=== PATIENT | female | born 1950 | race African-American/Black ===

== ENCOUNTER 2025-08-25 22:00 | Inpatient (IN) | payer MEDICARE, OTHER ==
[~2025-08-25] VITALS: Ht 152.4 cm; Wt 40.0 kg
[2025-08-25 22:00] VITALS: PULSE 109; PULSE 74; RESP 26; RESP 27; O2SAT 89; O2SAT 99
[2025-08-25] MEDS: FUROSEMIDE 20 MG/2 ML VIAL IVP ONE ×2 (22:15→22:44)
[2025-08-25] MEDS: NITROGLYCERIN 2% (1 GM=INCH) OINTMENT PACKET TP ONE (22:15)
[2025-08-25 22:54] LABS: CALCIUM, TOTAL 8.5 mg/dL (8.8-10.5); CREATININE 1.07 mg/dL (0.60-1.30); GLOMERULAR FILTR. RATE CALC > 60 mL/min (>60); GLUCOSE,RANDOM 282 mg/dL (70-110); SODIUM SERUM 140 mmol/L (136-145); UREA NITROGEN, BLOOD 13 mg/dL (7-18)
[2025-08-25 22:55] LABS: PLATELET COUNT (AUTO) 227 K/uL (150-450); RED BLOOD CELL COUNT(AUTO) 4.90 MIL/uL (4.00-5.20); RED CELL DISTRIBUTION WIDTH 15.2 % (11.5-14.5); WHITE BLOOD COUNT (AUTO) 8.6 K/uL (4.5-11.0)
[2025-08-25 23:00] LABS: CREATINE KINASE, TOTAL ONLY 180 U/L (26-192)
[2025-08-25] MEDS ORDERED: ONDANSETRON HCL 4 MG/2 ML VIAL IVP PRN (23:00)
[2025-08-25 23:26] LABS: TROPONIN I-HIGH SENSITIVITY 39 ng/L (<51)
[2025-08-25 23:33] LABS: LACTIC ACID 4.2 mmol/L (0.4-2.0)
[2025-08-26] VITALS (16 sets, daily range): BP systolic 102–122; BP diastolic 47–66; PULSE 46–96; RESP 20–24; TEMP 96.2–98.2; O2SAT 91–100
[2025-08-26] MEDS: HEPARIN SODIUM,PORCINE 5,000 UNITS/ML VIAL SQ SCH
[2025-08-26] MEDS: CefTRIAXone 1 GM/DEXTROSE 50 ML IV SCH (00:01)
[2025-08-26] MEDS: AZITHROMYCIN 500 MG/NS 250 ML IV SCH (00:09)
[2025-08-26 00:30] LABS: FRACTIONATED INSPIRED OXYGEN 100.0 % (21-100.0); SOURCE, BLOOD GAS ARTERIAL
[2025-08-26 00:32] LABS: ABG METHEMOGLOBIN 0.7 % (0.0-1.5)
[2025-08-26 01:03] LABS: ABG BASE EXCESS -5.3 mmol/L (-2.0-3.0); ABG CARBOXYHEMOGLOBIN 1.3 % (0.5-1.5); ABG HCO3 19.6 mmol/L (21.0-28.0); ABG OXYGEN CONTENT 20.3 mL/dL (15.0-23.0); ABG OXYGEN SATURATION 95.7 % (94.0-98.0); ABG OXYHEMOGLOBIN 93.8 % (94.0-98.0); ABG PCO2 54 mmHg (32.0-45.0); ABG PH 7.231 (7.350-7.450); ABG TOTAL HEMOGLOBIN 15.4 G/dL (12.0-16.0); ALLEN TEST, BLOOD GAS Positive; FLOW, BLOOD GAS 0.00 L/min (0.00-15.00); O2 DEVICE,BLOOD GAS BIPAP (ROOM AIR); PO2, ARTERIAL BG 85.9 mmHg (83.0-108.0); SITE, BLOOD GAS LFT BRACHIAL; TEMPERATURE, FAHRENHEIT, BG 98.6 FAHREN (96.0-98.6)
[2025-08-26] MEDS ORDERED: IOHEXOL 350 MG/ML 100 ML VIAL ONE ×2 (01:17→02:51)
[2025-08-26] MEDS: ALBUMIN HUMAN 5%-12.5GM/250ML 250 ML IV ONE (02:00)
[2025-08-26] MEDS: FUROSEMIDE 20 MG/2 ML VIAL IVP ONE (02:16)
[2025-08-26] MEDS: LORazepam 2 MG/ML VIAL IVP ONE ×2 (02:16→02:43)
[2025-08-26] MEDS ORDERED: SODIUM CHLORIDE 0.9% 100 ML ONE (02:51)
[2025-08-26] MEDS ORDERED: ETOMIDATE 2 MG/ML 10 ML VIAL ONE (03:24)
[2025-08-26] MEDS ORDERED: ROCURONIUM BROMIDE 10 MG/ML 5 ML VIAL ONE (03:24)
[2025-08-26] MEDS ORDERED: PHENYLEPHRINE HCL IN 0.9% NACL 400 MCG/10 ML SYRINGE IVP ONE (03:30)
[2025-08-26] MEDS ORDERED: PHENYLEPHRINE 200 MG/D5%-WATER 250 ML IV PRN (03:45)
[2025-08-26] MEDS: PROPOFOL 1000 MG/ISO-OSM 100 ML IV PRN (03:59)
[2025-08-26] MEDS: ALBUTEROL SULFATE 2.5 MG/0.5 ML NEB SOLUTION NEB ONE (04:08)
[2025-08-26] MEDS: IPRATROPIUM BROMIDE 0.5 MG/2.5 ML NEB SOLUTION NEB PRN (04:09)
[2025-08-26] MEDS ORDERED: LABETALOL HCL 5 MG/ML 20 ML VIAL IVP ONE (04:18)
[2025-08-26] MEDS: FentaNYL CIT 1000MCG/0.9% NACL 100 ML IV PRN ×2 (04:24→23:31)
[2025-08-26 04:27] LABS: APPEARANCE,URINE CLEAR (CLEAR); GLUCOSE, URINE (UA) TRACE mg/dL (NEGATIVE); LEUKOCYTE ESTERASE ,URINE NEGATIVE (NEGATIVE); NITRATE,URINE NEGATIVE (NEGATIVE); OCCULT BLOOD,URINE NEGATIVE (NEGATIVE); SPECIFIC GRAVITIY, URINE 1.009 (1.003-1.030)
[2025-08-26] MEDS: LABETALOL HCL 5 MG/ML 20 ML VIAL IVP ONE (05:04)
[2025-08-26 05:20] LABS: PLATELET COUNT (AUTO) 239 K/uL (150-450); RED BLOOD CELL COUNT(AUTO) 4.89 MIL/uL (4.00-5.20); RED CELL DISTRIBUTION WIDTH 14.8 % (11.5-14.5); WHITE BLOOD COUNT (AUTO) 10.6 K/uL (4.5-11.0)
[2025-08-26 05:34] LABS: CALCIUM, TOTAL 8.0 mg/dL (8.8-10.5); CREATININE 0.81 mg/dL (0.60-1.30); GLOMERULAR FILTR. RATE CALC > 60 mL/min (>60); GLUCOSE,RANDOM 193 mg/dL (70-110); SODIUM SERUM 137 mmol/L (136-145); UREA NITROGEN, BLOOD 13 mg/dL (7-18)
[2025-08-26 05:47] LABS: ABG BASE EXCESS 0.5 mmol/L (-2.0-3.0); ABG CARBOXYHEMOGLOBIN 1.1 % (0.5-1.5); ABG HCO3 23.9 mmol/L (21.0-28.0); ABG METHEMOGLOBIN 0.5 % (0.0-1.5); ABG OXYGEN CONTENT 18.6 mL/dL (15.0-23.0); ABG OXYGEN SATURATION 88.8 % (94.0-98.0); ABG OXYHEMOGLOBIN 87.4 % (94.0-98.0); ABG PCO2 55 mmHg (32.0-45.0); ABG PH 7.310 (7.350-7.450); ABG TOTAL HEMOGLOBIN 15.2 G/dL (12.0-16.0); FRACTIONATED INSPIRED OXYGEN 100.0 % (21-100.0); PO2, ARTERIAL BG 59.9 mmHg (83.0-108.0); SOURCE, BLOOD GAS ARTERIAL; TEMPERATURE, FAHRENHEIT, BG 100.0 FAHREN (96.0-98.6)
[2025-08-26 05:48] LABS: ALLEN TEST, BLOOD GAS Positive; FLOW, BLOOD GAS 0.00 L/min (0.00-15.00); O2 DEVICE,BLOOD GAS VENTILATOR (ROOM AIR); PEEP,BG 5 cm H2O; SET RATE, BG 20.0 min.; SITE, BLOOD GAS LFT RADIAL; VT, ABG 360 ml
[2025-08-26] MEDS: DOCUSATE SODIUM 100 MG CAPSULE PO SCH (09:00)
[2025-08-26] MEDS ORDERED: DEXTROSE 50%-WATER 25 GM/50 ML SYRINGE IVP PRN (10:45)
[2025-08-26] MEDS: INSULIN GLARGINE,HUM.REC.ANLOG 100 UNITS/ML SQ SCH (10:45)
[2025-08-26] MEDS: NOREPINEPHRINE 8 MG/0.9 % NACL 250 ML IV PRN (11:07)
[2025-08-26] MEDS: MAGNESIUM SULFATE 2 GM/WATER 50 ML IV ONE (11:35)
[2025-08-26] MEDS ORDERED: SODIUM CHLORIDE 0.9% 500 ML IV ONE ×3 (11:39→16:19)
[2025-08-26] MEDS: ALBUTEROL SULFATE 2.5 MG/0.5 ML NEB SOLUTION NEB PRN (12:02)
[2025-08-26 12:14] LABS: ABG BASE EXCESS -3.2 mmol/L (-2.0-3.0); ABG CARBOXYHEMOGLOBIN 0.7 % (0.5-1.5); ABG HCO3 21.0 mmol/L (21.0-28.0); ABG METHEMOGLOBIN 0.7 % (0.0-1.5); ABG OXYGEN CONTENT 18.4 mL/dL (15.0-23.0); ABG OXYGEN SATURATION 94.4 % (94.0-98.0); ABG OXYHEMOGLOBIN 93.1 % (94.0-98.0); ABG PCO2 59 mmHg (32.0-45.0); ABG TOTAL HEMOGLOBIN 14.0 G/dL (12.0-16.0); FRACTIONATED INSPIRED OXYGEN 80.0 % (21-100.0); PO2, ARTERIAL BG 76.6 mmHg (83.0-108.0); SOURCE, BLOOD GAS ARTERIAL; TEMPERATURE, FAHRENHEIT, BG 97.4 FAHREN (96.0-98.6)
[2025-08-26 12:15] LABS: ABG A-A DIFF O2 433.3 mmHg (10-20.0); ABG PH 7.232 (7.350-7.450); ALLEN TEST, BLOOD GAS Positive; O2 DEVICE,BLOOD GAS VENTILATOR (ROOM AIR); PATIENT RATE, BG 20.0 min.; PEEP,BG 8 cm H2O; SET RATE, BG 20.0 min.; SITE, BLOOD GAS RT RADIAL; VT, ABG 360 ml
[2025-08-26 12:16] LABS: SPONTANEOUS VT, BG 458 ml
[2025-08-26] MEDS ORDERED: DOPamine 400MG/D5W[STANDARD] 250 ML IV PRN (12:45)
[2025-08-26] MEDS: PANTOPRAZOLE SODIUM 40 MG/VIAL IVP SCH (14:28)
[2025-08-26 15:15] LABS: ABG BASE EXCESS -4.7 mmol/L (-2.0-3.0); ABG CARBOXYHEMOGLOBIN 0.3 % (0.5-1.5); ABG HCO3 21.1 mmol/L (21.0-28.0); ABG METHEMOGLOBIN 0.1 % (0.0-1.5); ABG OXYGEN CONTENT 19.1 mL/dL (15.0-23.0); ABG OXYGEN SATURATION 99.5 % (94.0-98.0); ABG OXYHEMOGLOBIN 99.1 % (94.0-98.0); ABG PCO2 36 mmHg (32.0-45.0); ABG PH 7.373 (7.350-7.450); ABG TOTAL HEMOGLOBIN 13.3 G/dL (12.0-16.0); FRACTIONATED INSPIRED OXYGEN 80.0 % (21-100.0); PO2, ARTERIAL BG 237.0 mmHg (83.0-108.0); SOURCE, BLOOD GAS ARTERIAL; TEMPERATURE, FAHRENHEIT, BG 97.8 FAHREN (96.0-98.6)
[2025-08-26 15:17] LABS: ABG A-A DIFF O2 296.4 mmHg (10-20.0); SITE, BLOOD GAS ARTERIAL LINE
[2025-08-26 15:18] LABS: O2 DEVICE,BLOOD GAS VENTILATOR (ROOM AIR); PATIENT RATE, BG 24.0 min.; PEEP,BG 8 cm H2O; SET RATE, BG 24.0 min.; SPONTANEOUS VT, BG 371 ml; VT, ABG 360 ml
[2025-08-26] MEDS: PHENYLEPHRINE 200 MG/D5%-WATER 250 ML IV PRN (15:33)
[2025-08-26 18:05] LABS: GLUCOMETER DEV NAME(LOC) ICU.S7; GLUCOSE,POINT OF CARE 109 MG/DL (70-110)
[2025-08-26 21:36] LABS: GLUCOMETER DEV NAME(LOC) ICU.S7; GLUCOSE,POINT OF CARE 128 MG/DL (70-110)
[2025-08-26] MEDS: INSULIN LISPRO 100 UNITS/ML SQ PRN (21:56)
[2025-08-26] MEDS: ETHYL ALCOHOL 62% ANTISEPTIC NASAL SANITIZER 0.6 ML AMPUL NASAL SCH (21:59)
[2025-08-26] MEDS: CHLORHEXIDINE GLUCONATE 2% TOWELETTE [2'S/6'S] TP SCH (22:00)
[2025-08-26 22:39] LABS: ABG BASE EXCESS -6.0 mmol/L (-2.0-3.0); ABG CARBOXYHEMOGLOBIN 0.4 % (0.5-1.5); ABG HCO3 20.0 mmol/L (21.0-28.0); ABG METHEMOGLOBIN 0.1 % (0.0-1.5); ABG OXYGEN CONTENT 19.9 mL/dL (15.0-23.0); ABG OXYGEN SATURATION 99.2 % (94.0-98.0); ABG OXYHEMOGLOBIN 98.7 % (94.0-98.0); ABG PCO2 39 mmHg (32.0-45.0); ABG PH 7.326 (7.350-7.450); ABG TOTAL HEMOGLOBIN 14.1 G/dL (12.0-16.0); FRACTIONATED INSPIRED OXYGEN 50.0 % (21-100.0); PO2, ARTERIAL BG 168.9 mmHg (83.0-108.0); SOURCE, BLOOD GAS ARTERIAL; TEMPERATURE, FAHRENHEIT, BG 98.4 FAHREN (96.0-98.6)
[2025-08-26 22:40] LABS: ABG A-A DIFF O2 143.7 mmHg (10-20.0); O2 DEVICE,BLOOD GAS VENTILATOR (ROOM AIR); PATIENT RATE, BG 24.0 min.; PEEP,BG 5 cm H2O; SET RATE, BG 24.0 min.; SITE, BLOOD GAS ARTERIAL LINE; SPONTANEOUS VT, BG 358 ml; VT, ABG 360 ml
[2025-08-26 23:09] LABS: COVID AG,FIA SOURCE NASAL SWAB
[2025-08-26 23:11] LABS: INFLUENZA TYPE A NEGATIVE FOR TYPE A (NEGATIVE); INFLUENZA TYPE B NEGATIVE FOR TYPE B (NEGATIVE); SARS-COV2 (COVID) ANTIGEN,FIA Negative (Negative)
[2025-08-26 23:51] LABS: GLUCOMETER DEV NAME(LOC) ICUN.7; GLUCOSE,POINT OF CARE 150 MG/DL (70-110)
[2025-08-27] VITALS (14 sets, daily range): BP systolic 109–135; BP diastolic 40–98; PULSE 53–103; RESP 21–24; TEMP 95.7–98.6; O2SAT 93–100
[2025-08-27 05:30] LABS: PLATELET COUNT (AUTO) 229 K/uL (150-450); RED BLOOD CELL COUNT(AUTO) 4.72 MIL/uL (4.00-5.20); RED CELL DISTRIBUTION WIDTH 15.0 % (11.5-14.5); WHITE BLOOD COUNT (AUTO) 8.5 K/uL (4.5-11.0)
[2025-08-27 05:49] LABS: CALCIUM, TOTAL 8.1 mg/dL (8.8-10.5); CREATININE 0.81 mg/dL (0.60-1.30); GLOMERULAR FILTR. RATE CALC > 60 mL/min (>60); GLUCOSE,RANDOM 155 mg/dL (70-110); SODIUM SERUM 143 mmol/L (136-145); UREA NITROGEN, BLOOD 17 mg/dL (7-18)
[2025-08-27 05:55] LABS: PHOSPHORUS 3.9 mg/dL (2.5-4.9)
[2025-08-27] MEDS: PROPOFOL 1000 MG/ISO-OSM 100 ML IV PRN (06:04)
[2025-08-27 06:30] LABS: GLUCOMETER DEV NAME(LOC) ICUN.7; GLUCOSE,POINT OF CARE 147 MG/DL (70-110)
[2025-08-27 11:10] LABS: GLUCOMETER DEV NAME(LOC) ICU.S7; GLUCOSE,POINT OF CARE 128 MG/DL (70-110)
[2025-08-27] MEDS: DEXMEDETOMIDINE 400 MCG/NS 100 ML IV PRN (15:38)
[2025-08-27 18:01] LABS: GLUCOMETER DEV NAME(LOC) ICUN.7; GLUCOSE,POINT OF CARE 111 MG/DL (70-110)
[2025-08-28] VITALS (16 sets, daily range): BP systolic 116–158; BP diastolic 50–72; PULSE 54–121; RESP 20–28; TEMP 96.7–98.7; O2SAT 93–100
[2025-08-28 00:52] LABS: GLUCOMETER DEV NAME(LOC) ICU.S7; GLUCOSE,POINT OF CARE 144 MG/DL (70-110)
[2025-08-28 05:36] LABS: PLATELET COUNT (AUTO) 212 K/uL (150-450); RED BLOOD CELL COUNT(AUTO) 4.72 MIL/uL (4.00-5.20); RED CELL DISTRIBUTION WIDTH 14.9 % (11.5-14.5); WHITE BLOOD COUNT (AUTO) 13.1 K/uL (4.5-11.0)
[2025-08-28 05:40] LABS: CALCIUM, TOTAL 8.3 mg/dL (8.8-10.5); CREATININE 0.74 mg/dL (0.60-1.30); GLOMERULAR FILTR. RATE CALC > 60 mL/min (>60); GLUCOSE,RANDOM 124 mg/dL (70-110); SODIUM SERUM 147 mmol/L (136-145); UREA NITROGEN, BLOOD 22 mg/dL (7-18)
[2025-08-28 07:41] LABS: GLUCOMETER DEV NAME(LOC) ICUN.7; GLUCOSE,POINT OF CARE 114 MG/DL (70-110)
[2025-08-28] MEDS: MULTIVITAMINS, THERAPEUTIC 15 ML UDCUP GT SCH (08:11)
[2025-08-28] MEDS: THIAMINE 100 MG TABLET GT SCH (08:13)
[2025-08-28 08:56] LABS: GLUCOMETER DEV NAME(LOC) ICUN.7; GLUCOSE,POINT OF CARE 106 MG/DL (70-110)
[2025-08-28 11:30] LABS: ASPARTATE AMINOTRANSFERASE 23 U/L (15-37); CALCIUM, TOTAL 8.3 mg/dL (8.8-10.5); CREATININE 0.73 mg/dL (0.60-1.30); GLOMERULAR FILTR. RATE CALC > 60 mL/min (>60); GLUCOSE,RANDOM 156 mg/dL (70-110); SODIUM SERUM 144 mmol/L (136-145); TOTAL PROTEIN, SERUM 6.8 g/dL (6.4-8.2); UREA NITROGEN, BLOOD 24 mg/dL (7-18)
[2025-08-28 12:30] LABS: GLUCOMETER DEV NAME(LOC) ICUN.7; GLUCOSE,POINT OF CARE 156 MG/DL (70-110)
[2025-08-28] MEDS: METOPROLOL TARTRATE 25 MG TABLET PO SCH (15:22)
[2025-08-28 17:41] LABS: GLUCOMETER DEV NAME(LOC) ICUN.7; GLUCOSE,POINT OF CARE 103 MG/DL (70-110)
[2025-08-28] MEDS: DEXMEDETOMIDINE 400 MCG/NS 100 ML IV PRN (18:54)
[2025-08-28 23:46] LABS: GLUCOMETER DEV NAME(LOC) ICU.S7; GLUCOSE,POINT OF CARE 126 MG/DL (70-110)
[2025-08-29] VITALS (12 sets, daily range): BP systolic 122–142; BP diastolic 51–89; PULSE 58–105; RESP 14–25; TEMP 97.8–99.3; O2SAT 91–98
[2025-08-29 05:45] LABS: GLUCOMETER DEV NAME(LOC) ICU.S7; GLUCOSE,POINT OF CARE 138 MG/DL (70-110)
[2025-08-29 06:07] LABS: PLATELET COUNT (AUTO) 191 K/uL (150-450); RED BLOOD CELL COUNT(AUTO) 4.55 MIL/uL (4.00-5.20); RED CELL DISTRIBUTION WIDTH 14.5 % (11.5-14.5); WHITE BLOOD COUNT (AUTO) 12.5 K/uL (4.5-11.0)
[2025-08-29 06:23] LABS: ASPARTATE AMINOTRANSFERASE 42 U/L (15-37); CALCIUM, TOTAL 8.3 mg/dL (8.8-10.5); CREATININE 0.73 mg/dL (0.60-1.30); GLOMERULAR FILTR. RATE CALC > 60 mL/min (>60); GLUCOSE,RANDOM 136 mg/dL (70-110); SODIUM SERUM 144 mmol/L (136-145); TOTAL PROTEIN, SERUM 6.6 g/dL (6.4-8.2); UREA NITROGEN, BLOOD 32 mg/dL (7-18)
[2025-08-29] MEDS: ACETAMINOPHEN 325 MG TABLET PO PRN (11:27)
[2025-08-29] MEDS: METOPROLOL TARTRATE 25 MG TABLET PO ONE (11:27)
[2025-08-29 13:32] LABS: ABG BASE EXCESS -5.7 mmol/L (-2.0-3.0); ABG CARBOXYHEMOGLOBIN 0.1 % (0.5-1.5); ABG HCO3 20.5 mmol/L (21.0-28.0); ABG METHEMOGLOBIN 0.1 % (0.0-1.5); ABG OXYGEN CONTENT 18.3 mL/dL (15.0-23.0); ABG OXYGEN SATURATION 91.3 % (94.0-98.0); ABG OXYHEMOGLOBIN 91.1 % (94.0-98.0); ABG PCO2 33 mmHg (32.0-45.0); ABG PH 7.381 (7.350-7.450); ABG TOTAL HEMOGLOBIN 14.3 G/dL (12.0-16.0); FRACTIONATED INSPIRED OXYGEN 50.0 % (21-100.0); PO2, ARTERIAL BG 61.4 mmHg (83.0-108.0); SOURCE, BLOOD GAS ARTERIAL; TEMPERATURE, FAHRENHEIT, BG 99.3 FAHREN (96.0-98.6)
[2025-08-29 13:33] LABS: ABG A-A DIFF O2 257.0 mmHg (10-20.0); FLOW, BLOOD GAS 10.00 L/min (0.00-15.00); O2 DEVICE,BLOOD GAS VENTI MASK (ROOM AIR); SITE, BLOOD GAS ARTERIAL LINE
[2025-08-29 14:16] LABS: GLUCOMETER DEV NAME(LOC) ICUN.7; GLUCOSE,POINT OF CARE 171 MG/DL (70-110)
[2025-08-29] MEDS: ENALAPRILAT DIHYDRATE 1.25 MG/ML VIAL IVP ONE (16:24)
[2025-08-29] MEDS: METOPROLOL TARTRATE 25 MG TABLET PO SCH (20:06)
[2025-08-29 22:35] LABS: GLUCOMETER DEV NAME(LOC) ICUN.7; GLUCOSE,POINT OF CARE 77 MG/DL (70-110)
[2025-08-30] VITALS (11 sets, daily range): BP systolic 88–140; BP diastolic 43–98; PULSE 62–95; RESP 11–20; TEMP 97.4–99.2; O2SAT 83–99
[2025-08-30] MEDS ORDERED: SODIUM CHLORIDE 0.9% 250 ML IV ONE (03:15)
[2025-08-30 03:31] LABS: GLUCOMETER DEV NAME(LOC) ICU.S7; GLUCOSE,POINT OF CARE 107 MG/DL (70-110)
[2025-08-30 05:42] LABS: PLATELET COUNT (AUTO) 172 K/uL (150-450); RED BLOOD CELL COUNT(AUTO) 4.27 MIL/uL (4.00-5.20); RED CELL DISTRIBUTION WIDTH 14.7 % (11.5-14.5); WHITE BLOOD COUNT (AUTO) 8.8 K/uL (4.5-11.0)
[2025-08-30 05:43] LABS: CALCIUM, TOTAL 8.2 mg/dL (8.8-10.5); CREATININE 0.63 mg/dL (0.60-1.30); GLOMERULAR FILTR. RATE CALC > 60 mL/min (>60); GLUCOSE,RANDOM 94 mg/dL (70-110); SODIUM SERUM 142 mmol/L (136-145); UREA NITROGEN, BLOOD 26 mg/dL (7-18)
[2025-08-30 10:11] LABS: GLUCOMETER DEV NAME(LOC) ICUN.7; GLUCOSE,POINT OF CARE 100 MG/DL (70-110)
[2025-08-30 10:11] LABS: GLUCOMETER DEV NAME(LOC) ICUN.7; GLUCOSE,POINT OF CARE 81 MG/DL (70-110)
[2025-08-30] MEDS ORDERED: POTASSIUM CHLORIDE 20 MEQ ER TABLET PO PRN (14:00)
[2025-08-30] MEDS ORDERED: POTASSIUM CHL 10 MEQ/WATER 50 ML IV PRN (14:00)
[2025-08-30 14:21] LABS: GLUCOMETER DEV NAME(LOC) ICUN.7; GLUCOSE,POINT OF CARE 76 MG/DL (70-110)
[2025-08-30] MEDS: DEXTROSE 5%-0.45% SODIUM CHL 1,000 ML IV SCH (15:52)
[2025-08-30 18:15] LABS: GLUCOMETER DEV NAME(LOC) 5N.1D; GLUCOSE,POINT OF CARE 83 MG/DL (70-110)
[2025-08-30 22:01] LABS: GLUCOMETER DEV NAME(LOC) 5N.1D; GLUCOSE,POINT OF CARE 93 MG/DL (70-110)
[2025-08-31] VITALS (7 sets, daily range): BP systolic 113–142; BP diastolic 54–76; PULSE 69–80; RESP 16–17; TEMP 97.8–98.6; O2SAT 96–100
[2025-08-31 06:41] LABS: GLUCOMETER DEV NAME(LOC) 5N.1D; GLUCOSE,POINT OF CARE 105 MG/DL (70-110)
[2025-08-31 10:30] LABS: PLATELET COUNT (AUTO) 141 K/uL (150-450); RED BLOOD CELL COUNT(AUTO) 4.76 MIL/uL (4.00-5.20); RED CELL DISTRIBUTION WIDTH 14.6 % (11.5-14.5); WHITE BLOOD COUNT (AUTO) 9.0 K/uL (4.5-11.0)
[2025-08-31 10:33] LABS: CALCIUM, TOTAL 8.5 mg/dL (8.8-10.5); CREATININE 0.64 mg/dL (0.60-1.30); GLOMERULAR FILTR. RATE CALC > 60 mL/min (>60); GLUCOSE,RANDOM 131 mg/dL (70-110); SODIUM SERUM 140 mmol/L (136-145); UREA NITROGEN, BLOOD 25 mg/dL (7-18)
[2025-08-31 17:26] LABS: GLUCOMETER DEV NAME(LOC) 5N.1D; GLUCOSE,POINT OF CARE 129 MG/DL (70-110)
[2025-08-31 19:51] LABS: GLUCOMETER DEV NAME(LOC) 5S.1E; GLUCOSE,POINT OF CARE 144 MG/DL (70-110)
[2025-08-31 20:16] LABS: GLUCOMETER DEV NAME(LOC) 5S.1E; GLUCOSE,POINT OF CARE 142 MG/DL (70-110)
[2025-09-01] VITALS (9 sets, daily range): BP systolic 127–144; BP diastolic 63–83; PULSE 65–88; RESP 16–20; TEMP 97.9–98.8; O2SAT 95–99
[2025-09-01 06:58] LABS: CALCIUM, TOTAL 8.1 mg/dL (8.8-10.5); CREATININE 0.81 mg/dL (0.60-1.30); GLOMERULAR FILTR. RATE CALC > 60 mL/min (>60); GLUCOSE,RANDOM 113 mg/dL (70-110); SODIUM SERUM 138 mmol/L (136-145); UREA NITROGEN, BLOOD 21 mg/dL (7-18)
[2025-09-01 07:04] LABS: PLATELET COUNT (AUTO) 176 K/uL (150-450); RED BLOOD CELL COUNT(AUTO) 4.67 MIL/uL (4.00-5.20); RED CELL DISTRIBUTION WIDTH 14.2 % (11.5-14.5); WHITE BLOOD COUNT (AUTO) 7.9 K/uL (4.5-11.0)
[2025-09-01 20:50] LABS: GLUCOMETER DEV NAME(LOC) 5S.2E; GLUCOSE,POINT OF CARE 175 MG/DL (70-110)
[2025-09-01 21:00] LABS: GLUCOMETER DEV NAME(LOC) 5S.2E; GLUCOSE,POINT OF CARE 155 MG/DL (70-110)
[2025-09-01 22:56] LABS: GLUCOMETER DEV NAME(LOC) 5N.1D; GLUCOSE,POINT OF CARE 135 MG/DL (70-110)
[2025-09-02 04:00] VITALS: BP 149/91; PULSE 82; RESP 18; TEMP 98.8; O2SAT 90
[2025-09-02 04:02] VITALS: O2SAT 95
[2025-09-02 04:41] VITALS: PULSE 63; PULSE 64; RESP 16; O2SAT 88; O2SAT 94
[2025-09-02 04:56] VITALS: PULSE 61; RESP 16; O2SAT 94
[2025-09-02 06:11] LABS: GLUCOMETER DEV NAME(LOC) 5S.2E; GLUCOSE,POINT OF CARE 92 MG/DL (70-110)
[2025-09-02 07:12] LABS: PLATELET COUNT (AUTO) 148 K/uL (150-450); RED BLOOD CELL COUNT(AUTO) 4.69 MIL/uL (4.00-5.20); RED CELL DISTRIBUTION WIDTH 14.5 % (11.5-14.5); WHITE BLOOD COUNT (AUTO) 7.3 K/uL (4.5-11.0)
[2025-09-02 07:28] LABS: CALCIUM, TOTAL 8.3 mg/dL (8.8-10.5); CREATININE 0.63 mg/dL (0.60-1.30); GLOMERULAR FILTR. RATE CALC > 60 mL/min (>60); GLUCOSE,RANDOM 89 mg/dL (70-110); SODIUM SERUM 138 mmol/L (136-145); UREA NITROGEN, BLOOD 17 mg/dL (7-18)
[2025-09-02 08:28] VITALS: BP 134/104; PULSE 73; RESP 18; TEMP 98; O2SAT 92
[2025-09-02 11:47] VITALS: BP 139/87; PULSE 72; RESP 17; TEMP 98.1; O2SAT 94
[2025-09-02 12:31] LABS: GLUCOMETER DEV NAME(LOC) 5N.2C; GLUCOSE,POINT OF CARE 103 MG/DL (70-110)
== END 2025-09-02 14:30 | DRG 871 ==
LOC: EMS 22:00 → EDH 22:58 → ICU 08-26 08:20 → 5N 08-30 17:20
PROVIDERS: ADMIT Internal Medicine; ATTEND Internal Medicine
PROC: 5A09357 Assistance with Respiratory Ventilation, Less than 24 Consecutive Hours, Continuous Positive Airway Pressure (ICD-10-PCS; principal; 2025-08-25)
PROC: 5A09357 Assistance with Respiratory Ventilation, Less than 24 Consecutive Hours, Continuous Positive Airway Pressure (ICD-10-PCS; 2025-08-26)
PROC: 0BH17EZ Insertion of Endotracheal Airway into Trachea, Via Natural or Artificial Opening (ICD-10-PCS; 2025-08-26)
PROC: 5A1945Z Respiratory Ventilation, 24-96 Consecutive Hours (ICD-10-PCS; 2025-08-26)
PROC: 03HY32Z Insertion of Monitoring Device into Upper Artery, Percutaneous Approach (ICD-10-PCS; 2025-08-26)
PROC: B34JZZZ Ultrasonography of Left Upper Extremity Arteries (ICD-10-PCS; 2025-08-26)
DX: A41.9 Sepsis, unspecified organism (principal); E43 Unspecified severe protein-calorie malnutrition; J18.9 Pneumonia, unspecified organism; J96.02 Acute respiratory failure with hypercapnia; J96.01 Acute respiratory failure with hypoxia; J44.1 Chronic obstructive pulmonary disease with (acute) exacerbation; E87.20 Acidosis, unspecified; E87.1 Hypo-osmolality and hyponatremia; Z68.1 Body mass index [BMI] 19.9 or less, adult; J44.0 Chronic obstructive pulmonary disease with (acute) lower respiratory infection; J43.2 Centrilobular emphysema; I50.9 Heart failure, unspecified; Z20.822 Contact with and (suspected) exposure to COVID-19; I95.9 Hypotension, unspecified; Z79.899 Other long term (current) drug therapy
CPT/HCPCS: 71045; 71275; 80048; 80053; 81003; 82550; 82805; 82962; 83605; 83735; 83880; 84100; 84132; 84145; 84484; 85025; 85379; 87040; 87081; 87804; 92526; 92610; 93005; 93970; 94002; 94003; 94640; 94760; 97116; 97162; 97166; 97530; 99291; J0360; J0456; J0696; J1644; J1815; J1938; J2060; J2370; J2470; J2704; J2919; J3010; J3475; J3490; J7040; J7050; P9041; 36415-L1; 36415-TC; J7613